=== PATIENT | male | born 1960 | race Caucasian/White ===

== ENCOUNTER 2019-04-15 07:00 | Day surgery (SDC) | payer MEDICARE, BC ==
[~2019-04-15] VITALS: Ht 172.7 cm; Wt 97.1 kg
[~2019-04-15 07:00] MED LIST: ACETAMINOPHEN500 MG PO; ADVAIR 250-501 EACH INH; ARMOUR THYROID60 MG PO; DEPLIN15 MG PO; DULOXETINE HCL30 MG PO; HORIZANT600 MG PO; KLOR-CON M2020 MEQ PO; LEVOTHYROXINE75 MCG PO; LISINOPRIL-HCT1 EACH PO; LORAZEPAM1 MG PO; MAGNESIUM400 M1 PO; METHOCARBAMOL750 MG PO; MINIPRESS1 MG PO; MORPHINE SULFAT15 M1 PO; MORPHINE SULFAT15 MG PO; MOVANTIK25 MG PO; MULTIVITAMINS1 EAC8 PO; NEURONTIN600 MG PO; NIACIN500 M3 PO; NORCO 10-325 T1 EACH PO; OLANZAPINE10 MG PO; PULMICORT FLE180 MCG IH; SINGULAIR10 MG PO; SUMATRIPTAN SUC50 MG PO; TART CHERRY CA1 EACH PO; TRAZODONE HCL100 MG PO; VEGETABLE LAXA8.6 MG PO; VENLAFAXINE HCL75 MG PO; VISTARIL25 MG PO; VITAMIN B COMP1 EAC3 PO; VITAMIN D250000 UNIT PO
--- NOTE | 2019-04-15 09:45 | NUR ---
04/15/19 0945 Sheets,Sharri 0934 PT ARRIVED TO PACU ON LEFT SIDE AND ON 10L VIA MASK. RESP EVEN AND UNLABORED. PT REACTIVE TO TACTILE STIMULI. 0938 O2 MASK DECREASED 6L. 0941 PT OPENED EYES AND ROLLED TO BACK. PT REORIENTED TO PACU AND DENIES PAIN. O2 REMOVED. PT BACK TO SLEEP. 0943 PERIOD OF APNEA NOTED, PT WOKE TO VERBAL STIMULI AND IS ENCOURAGED TO DEEP BREATHE. O2 SAT REMAINED ABOVE 90%.
--- NOTE | 2019-04-15 10:02 | NUR ---
PT IS ALERT, ORIENTED AND SUPPORTED BY HIS PINKY. PT COMMENTED THAT HE HAS PREVIOUS SCOPES, BUT BECAUSE OF MEDS PT TAKES, HE HAD TO DO BOWEL PREP FOR 2 DAYS-NOT PLEASANT FOR HIM. BOTH SEEM TO BE DEALING APPROPRIATELY. PT REQUESTED PRAYER, WILL FOLLOW NEEDED
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
== END 2019-04-15 10:34 | disposition home or self-care (01) ==
LOC: DS 07:00 → OPS 07:00 → DS 08:00 → OPS 08:00
PROVIDERS: Colon & Rectal Surgery
PROC: 0DBE8ZX Excision of Large Intestine, Via Natural or Artificial Opening Endoscopic, Diagnostic (ICD-10-PCS; principal; 2019-04-15 08:00)
DX: Z12.11 Encounter for screening for malignant neoplasm of colon (principal); K63.89 Other specified diseases of intestine; K57.30 Diverticulosis of large intestine without perforation or abscess without bleeding; K64.8 Other hemorrhoids; I10 Essential (primary) hypertension; J45.909 Unspecified asthma, uncomplicated; R51 Headache; G89.29 Other chronic pain; F41.9 Anxiety disorder, unspecified; K59.09 Other constipation; Z98.890 Other specified postprocedural states; Z88.6 Allergy status to analgesic agent; Z88.8 Allergy status to other drugs, medicaments and biological substances; Z91.048 Other nonmedicinal substance allergy status; Z79.899 Other long term (current) drug therapy; Z79.51 Long term (current) use of inhaled steroids
CPT/HCPCS: J2704; J7120